=== PATIENT | female | born 1990 | race Two or more races ===

== ENCOUNTER 2018-08-26 18:29 | Emergency (ER) | payer MEDICAID, OTHER ==
[~2018-08-26] VITALS: Ht 157.5 cm; Wt 78.2 kg
[2018-08-26 18:31] VITALS: BP 137/80
[2018-08-26 19:09] LABS: BASOPHILS # (AUTO) 0.11 x10^3/uL (0-0.1); BASOPHILS % (AUTO) 1 % (0-1); EOSINOPHILS # (AUTO) 0.05 x10^3/uL (0-0.4); EOSINOPHILS % (AUTO) 0 % (1-7); LYMPHOCYTES # (AUTO) 2.41 x10^3/uL (1-3.4); LYMPHOCYTES % (AUTO) 23 % (22-44); MD NO; MEAN CORPUSCULAR HEMOGLOBIN 29.3 pg (27.0-34.8); MEAN CORPUSCULAR HGB CONC 34.2 g/dL (32.4-35.8); MEAN CORPUSCULAR VOLUME 85.6 fL (80-100); MEAN PLATELET VOLUME 9.9 fL (7.4-10.4); MONOCYTES # (AUTO) 0.55 x10^3/uL (0.2-0.8); MONOCYTES % (AUTO) 5 % (2-9); NEUTROPHILS # (AUTO) 7.34 x10^3/uL (1.8-6.8); NEUTROPHILS % (AUTO) 70 % (42-75); PLATELET COUNT 259 x10^3/uL (130-400); RED BLOOD COUNT 4.57 x10^6/uL (3.82-5.3); RED CELL DISTRIBUTION WIDTH 13.9 % (9.6-15.2)
[2018-08-26 19:14] LABS: ALANINE AMINOTRANSFERASE 29 U/L (12-78); ALBUMIN 3.6 g/dL (3.4-5.0); ANION GAP 6 mmol/L (5-15); CHLORIDE 105 mmol/L (98-107)
[2018-08-26 19:29] LABS: ALKALINE PHOSPHATASE 73 U/L (45-117); BILIRUBIN,TOTAL 0.3 mg/dL (0.2-1.0); TOTAL PROTEIN 7.3 g/dL (6.4-8.2)
--- NOTE | 2018-08-26 20:22 | NUR ---
pt to ed with n/v x 2-3 weeks. lbm today. 7 weeks . 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 no abd pain or tenderness. connected to monitors. vss. ua collected and sent. awaiting md assessment.
[2018-08-26 20:39] LABS: MICROSCOPIC INDICATED
[2018-08-26 20:45] LABS: CULTURE INDICATED? NO
--- NOTE | 2018-08-26 21:19 | NUR ---
PT TAKEN TO US
== END 2018-08-26 22:11 | disposition home or self-care (01) ==
LOC: ED 21:45
DX: O26.891 Other specified pregnancy related conditions, first trimester (principal); Z3A.08 8 weeks gestation of pregnancy; R10.9 Unspecified abdominal pain
CPT/HCPCS: 36415; 76801; 80053; 81001; 84702; 85025; 99284